=== PATIENT | male | born 1965 | race Caucasian/White ===

== ENCOUNTER 2016-12-30 09:38 | Day surgery (SDC) | payer OTHER ==
[~2016-12-30] VITALS: Ht 177.8 cm; Wt 76.8 kg
[2016-12-30] MEDS ORDERED: ANTIDEPRESSANT (10:59)
[2016-12-30] MEDS ORDERED: PAIN MED (10:59)
[2016-12-30 11:00] VITALS: Ht 177.8 cm; Wt 76.8 kg
[2016-12-30] MEDS ORDERED: PROPOFOL 60 ML ONE (11:34)
[2016-12-30] MEDS ORDERED: LIDOCAINE 2% (SDV) 5 ML INJ ONE (11:34)
[2016-12-30 11:38] VITALS: BP 143/84; PULSE 69; RESP 18
--- NOTE | 2016-12-30 12:11 | OPPN ---
Date/Time of Note Date/Time of Note DATE: 12/30/16 TIME: 12:10 Operative Report Preoperative Diagnosis Screening Postoperative Diagnosis 2 small sigmoid polyps removed Internal hemorrhoid Operation/Procedure Performed Colonoscopy and biopsy Provider: TRAVIS MANDUJANO MD Anesthesia Type: MAC Estimated blood loss: none Transfusion Required: no Specimens Sigmoid polyps Grafts/Implants: none Complications: no TRAVIS MANDUJANO MD Dec 30, 2016 12:11
[2016-12-30 12:34] VITALS: BP 115/79; PULSE 73; RESP 18
--- NOTE | 2016-12-30 13:28 | GILP ---
DATE OF PROCEDURE: 12/30/2016 PROCEDURE PERFORMED: Colonoscopy and biopsy. SURGEON: Nimisha Barnard MD. PREOPERATIVE DIAGNOSIS: Screening colonoscopy. POSTOPERATIVE DIAGNOSES: 1. Colonoscopy all the way to the cecum. 2. Two small sigmoid colon polyps were removed using the biopsy forceps. 3. Internal hemorrhoids. INDICATION: Mr. Tyshawn Art is a 51-year-old male patient was scheduled for screening colonoscopy. The procedure and possible complications were well explained to the patient. He understood and consented to the procedure. DESCRIPTION OF PROCEDURE: Under influence of anesthesia, the colonoscope was carefully introduced the rectum. Under direct vision, it was advanced all the way to the cecum. FINDINGS: The patient had 2 small sigmoid colon polyps and they were removed using the biopsy forceps. He had internal hemorrhoids. He tolerated the procedure very well. There was no complication from the procedure. At the end of procedure, he was awake with stable vital signs and he was discharged home in the care of his family. IMPRESSION: 1. Colonoscopy all the way to the cecum. 2. Small sigmoid colon polyps were removed using the biopsy forceps. 3. Internal hemorrhoids. PLAN: Next screening colonoscopy in 10 years. Dictated By: MD ALYSA Slater/santa/gordon /Document#: [id number]
== END 2016-12-30 16:59 | disposition home or self-care (01) ==
LOC: GIL 09:38
PROVIDERS: ATTEND Internal Medicine Gastroenterology
DX: Z12.11 Encounter for screening for malignant neoplasm of colon (principal); D12.5 Benign neoplasm of sigmoid colon; K64.8 Other hemorrhoids
CPT/HCPCS: 45380; 88305; Z7610